=== PATIENT | female | born 1955 | race Caucasian/White ===

== ENCOUNTER 2023-10-28 15:33 | Emergency (ER) | payer MEDICARE ==
[2023-10-28 16:02] VITALS: TEMP 97.8
--- NOTE | 2023-10-28 16:37 | ED ---
Recheck HPI - General Chief Complaint: Recheck/Abnormal Lab/Rx Stated Complaint: Abnormal Labs Time Seen by Provider: 10/28/23 16:10 Source: patient, RN notes reviewed Mode of arrival: ambulatory Limitations: no limitations - History of Present Illness Initial Comments: This is a 68-year-old female who presents to the emergency department for abnormal blood work. States that she's had a week of excessive thirst and urination, as well as a reduced appetite for a couple of days. She saw her primary care provider, who said that she did not have thrush or a UTI, however they checked her blood sugar and said that her blood sugar was 565 and her A1c was 11.9. Reports a history of high blood pressure and high cholesterol. States that she had blood work done a couple of months ago and was told that she was a borderline diabetic, but is unsure what her blood sugar was at that time. MD Complaint: abnormal lab - Related Data Home Medications Medication Instructions Recorded Confirmed Cholecalciferol (Vitamin D3) 75 mcg PO DAILY 10/28/23 10/28/23 [Vitamin D3 (3000 Iu)] Losartan Potassium [Cozaar] 100 mg PO DAILY 10/28/23 10/28/23 Metoprolol Tartrate [Lopressor] 25 mg PO DAILY 10/28/23 10/28/23 Rosuvastatin [Crestor] 20 mg PO DAILY 10/28/23 10/28/23 amLODIPine [Norvasc] 5 mg PO DAILY 10/28/23 10/28/23 hydroCHLOROthiazide [Hydrodiuril] 25 mg PO DAILY 10/28/23 10/28/23 Previous Rx's Medication Instructions Recorded metFORMIN HCL 500 mg PO BID #60 tablet 10/28/23 Allergies Allergy/AdvReac Type Severity Reaction Status Date / Time No Known Allergies Allergy Verified 10/28/23 18:26 Review of Systems ROS Statement: Those systems with pertinent positive or pertinent negative responses have been documented in the HPI. ROS Other: All systems not noted in ROS Statement are negative. Past Medical History Past Medical History: Hypertension Additional Past Medical History / Comment(s): high cholestrol, heart dx History of Any Multi-Drug Resistant Organisms: None Reported Past Surgical History: No Surgical Hx Reported Past Psychological History: No Psychological Hx Reported Smoking Status: Never smoker Past Alcohol Use History: Rare Past Drug Use History: None Reported General Exam Limitations: no limitations General appearance: alert, in no apparent distress Head exam: Present: atraumatic, normocephalic, normal inspection Respiratory exam: Present: normal lung sounds bilaterally. Absent: respiratory distress, wheezes, rales, rhonchi, stridor Cardiovascular Exam: Present: regular rate, normal rhythm, normal heart sounds. Absent: systolic murmur, diastolic murmur, rubs, gallop, clicks Neurological exam: Present: alert, oriented X3, CN II-XII intact Psychiatric exam: Present: normal affect, normal mood Skin exam: Present: warm, dry, intact, normal color. Absent: rash Course Vital Signs 10/28/23 10/28/23 10/28/23 15:51 16:43 18:14 Temperature 97.8 F Pulse Rate 92 90 77 Respiratory 17 18 18 Rate Blood Pressure 139/83 128/80 121/79 O2 Sat by Pulse 95 96 94 L Oximetry 10/28/23 20:39 Temperature Pulse Rate 84 Respiratory 18 Rate Blood Pressure 118/69 O2 Sat by Pulse 97 Oximetry Medical Decision Making - Medical Decision Making This is a 68-year-old female who presents to the emergency department for elevated blood sugar. Was pt. sent in by a medical professional or institution? @ -No Did you speak to anyone other than the patient for history? @ -No Did you review nursing and triage notes? @ -Yes, and I agree, it is accurate with regards to the patient's symptoms. Were old charts reviewed? @ -No Differential Diagnosis? @ -Differential Elevated Blood Sugar: Diabetes, DKA, HHS, dietary intake, medication, this is not meant to be an all- inclusive list. EKG interpreted by me (3pts min.)? @ -None X-rays interpreted by me (1pt min.)? @ -None CT interpreted by me (1pt min.)? @ -None U/S interpreted by me (1pt. min.)? @ -None What testing was considered but not performed? (CT, X-rays, U/S, labs)? Why? @ -None What meds were considered but not given? Why? @ -None Did you discuss the management of the patient with other professionals? @ -No Did you reconcile home meds? @ -No Was smoking cessation discussed for >3mins.? @ -No Was critical care preformed (if so, how long)? @ -No Were there social determinants of health that impacted care today? How? (Homelessness, low income, unemployed, alcoholism, drug addiction, transp ortation, low edu. Level, literacy, decrease access to med. care, residential, rehab)? @ -No Was there de-escalation of care discussed even if they declined? (Discuss DNR or withdrawal of care, Hospice)? @ -No What co-morbidities impacted this encounter? (DM, HTN, Smoking, COPD, CAD, Cancer, CVA, Hep., AIDS, mental health diagnosis, sleep apnea, morbid obesity)? @ -HTN, HLD Was patient admitted / discharged? @ -Discharged. Lab work obtained demonstrating hyperglycemia with a glucose of 514. Anion gap is 18 and she is acetone positive, however bicarb is WNL at 25 and there is no sign of acidosis, pH is 7.44. Lab work did demonstrate signs of dehydration and the patient was given 2L of IV fluids and 8 units of regular insulin. Her sugar was rechecked afterwards and found to be 342. She was given another 5 units of regular insulin and her sugar came down to 269. At that time the patient was discharged home. She was given a prescription to start metformin 500 mg twice daily. She is otherwise advised follow-up with her primary care provider for reevaluation. Undiagnosed new problem with uncertain prognosis? @ -None Drug Therapy requiring intensive monitoring for toxicity (Heparin, Nitro, Insulin, Cardizem)? @ -None Were any procedures done? @ -None Diagnosis/symptom? @ -New onset diabetes mellitus Acute, or Chronic, or Acute on Chronic? @ -Acute Uncomplicated (without systemic symptoms) or Complicated (systemic symptoms)? @ -Complicated Side effects of treatment? @ -None Exacerbation, Progression, or Severe Exacerbation] @ -Not applicable Poses a threat to life or bodily function? @ -This will depend on how this progresses Return precautions reviewed in depth, the patient is instructed to return to the emergency department with any new, worsening, or concerning symptoms. Patient ve rbalized understanding. This case was discussed in detail with the attending ED physician, Dr. Johnson. Presentation, findings, and treatment plan discussed in detail as well. - Lab Data Result diagrams: 10/28/23 16:33 10/28/23 16:33 Lab Results 10/28/23 10/28/23 10/28/23 Range/Units 16:33 16:33 16:33 WBC 8.5 (3.8-10.6) k/uL RBC 4.89 (3.80-5.40) m/uL Hgb 14.9 (11.4-16.0) gm/dL Hct 44.1 (34.0-46.0) % MCV 90.3 (80.0-100.0) fL MCH 30.5 (25.0-35.0) pg MCHC 33.8 (31.0-37.0) g/dL RDW 12.3 (11.5-15.5) % Plt Count 256 (150-450) k/uL MPV 8.3 Neutrophils % 76 % Lymphocytes % 16 % Monocytes % 5 % Eosinophils % 1 % Basophils % 1 % Neutrophils # 6.5 (1.3-7.7) k/uL Lymphocytes # 1.4 (1.0-4.8) k/uL Monocytes # 0.4 (0-1.0) k/uL Eosinophils # 0.0 (0-0.7) k/uL Basophils # 0.1 (0-0.2) k/uL VBG pH (7.31-7.41) VBG pCO2 (37-51) mmHg VBG HCO3 (24-28) mmol/L Sodium 134 L (137-145) mmol/L Potassium 4.1 (3.5-5.1) mmol/L Chloride 91 L (98-107) mmol/L Carbon Dioxide 25 (22-30) mmol/L Anion Gap 18 mmol/L BUN 23 H (7-17) mg/dL Creatinine 0.80 (0.52-1.04) mg/dL Est GFR (CKD-EPI)AfAm 88 (>60 ml/min/1.73 sqM) Est GFR (CKD-EPI)NonAf 76 (>60 ml/min/1.73 sqM) Glucose 514 H* (74-99) mg/dL POC Glucose (mg/dL) (70-110) mg/dL POC Glu Cash Management Specialist ID Calcium 10.3 H (8.4-10.2) mg/dL Phosphorus 4.7 H (2.5-4.5) mg/dL Magnesium 2.2 (1.6-2.3) mg/dL Total Bilirubin 0.9 (0.2-1.3) mg/dL AST 46 H (14-36) U/L ALT 68 H (4-34) U/L Alkaline Phosphatase 141 H (38-126) U/L Total Protein 8.7 H (6.3-8.2) g/dL Albumin 5.3 H (3.5-5.0) g/dL Urine Color Colorless Urine Appearance Clear (Clear) Urine pH 5.5 (5.0-8.0) Ur Specific [place] 1.036 H (1.001-1.035) Urine Protein Negative (Negative) Urine Glucose (UA) 4+ H (Negative) Urine Ketones 1+ H (Negative) Urine Blood Trace H (Negative) Urine Nitrite Negative (Negative) Urine Bilirubin Negative (Negative) Urine Urobilinogen <2.0 (<2.0) mg/dL Ur Leukocyte Esterase Negative (Negative) Urine RBC 1 (0-5) /hpf Urine WBC 1 (0-5) /hpf Ur Squamous Epith Cells <1 (0-4) /hpf Acetone, Qual Positive (Negative) 10/28/23 10/28/23 10/28/23 Range/Units 17:21 19:23 20:17 WBC (3.8-10.6) k/uL RBC (3.80-5.40) m/uL Hgb (11.4-16.0) gm/dL Hct (34.0-46.0) % MCV (80.0-100.0) fL MCH (25.0-35.0) pg MCHC (31.0-37.0) g/dL RDW (11.5-15.5) % Plt Count (150-450) k/uL MPV Neutrophils % % Lymphocytes % % Monocytes % % Eosinophils % % Basophils % % Neutrophils # (1.3-7.7) k/uL Lymphocytes # (1.0-4.8) k/uL Monocytes # (0-1.0) k/uL Eosinophils # (0-0.7) k/uL Basophils # (0-0.2) k/uL VBG pH 7.44 H (7.31-7.41) VBG pCO2 41 (37-51) mmHg VBG HCO3 28 (24-28) mmol/L Sodium (137-145) mmol/L Potassium (3.5-5.1) mmol/L Chloride (98-107) mmol/L Carbon Dioxide (22-30) mmol/L Anion Gap mmol/L BUN (7-17) mg/dL Creatinine (0.52-1.04) mg/dL Est GFR (CKD-EPI)AfAm (>60 ml/min/1.73 sqM) Est GFR (CKD-EPI)NonAf (>60 ml/min/1.73 sqM) Glucose (74-99) mg/dL POC Glucose (mg/dL) 342 H 269 H (70-110) mg/dL POC Glu Cash Management Specialist Bruna Duval Brooke Calcium (8.4-10.2) mg/dL Phosphorus (2.5-4.5) mg/dL Magnesium (1.6-2.3) mg/dL Total Bilirubin (0.2-1.3) mg/dL AST (14-36) U/L ALT (4-34) U/L Alkaline Phosphatase (38-126) U/L Total Protein (6.3-8.2) g/dL Albumin (3.5-5.0) g/dL Urine Color Urine Appearance (Clear) Urine pH (5.0-8.0) Ur Specific [place] (1.001-1.035) Urine Protein (Negative) Urine Glucose (UA) (Negative) Urine Ketones (Negative) Urine Blood (Negative) Urine Nitrite (Negative) Urine Bilirubin (Negative) Urine Urobilinogen (<2.0) mg/dL Ur Leukocyte Esterase (Negative) Urine RBC (0-5) /hpf Urine WBC (0-5) /hpf Ur Squamous Epith Cells (0-4) /hpf Acetone, Qual (Negative) Disposition Clinical Impression: Diabetes mellitus, new onset Disposition: HOME SELF-CARE Instructions (If sedation given, give patient instructions): Type 2 Diabetes in Adults: New Diagnosis (DC), Type 2 Diabetes Management for Adults (ED) Additional Instructions: Return to the emergency department with any new, worsening, or concerning symptoms. Start taking the metformin twice daily. Follow up with your primary care provider in 1-2 days. Prescriptions: metFORMIN HCL 500 mg PO BID #60 tablet Is patient prescribed a controlled substance at d/c from ED?: No Referrals: Nonstaff,Physician [Primary Care Provider] - 1-2 days
[2023-10-28 16:49] VITALS: RESP 18
[2023-10-28 17:00] LABS: Basophils # (A) 0.1 k/uL (0-0.2); Basophils % (A) 1 %; Eosinophils % (A) 1 %; HCT 44.1 % (34.0-46.0); HGB 14.9 gm/dL (11.4-16.0); Lymphocytes # (A) 1.4 k/uL (1.0-4.8); Lymphocytes % (A) 16 %; MCH 30.5 pg (25.0-35.0); MCHC 33.8 g/dL (31.0-37.0); MCV 90.3 fL (80.0-100.0); Mean Platelet Volume 8.3; Monocytes # (A) 0.4 k/uL (0-1.0); Monocytes % (A) 5 %; Neutrophils # (A) 6.5 k/uL (1.3-7.7); Neutrophils % (A) 76 %; Platelet Count 256 k/uL (150-450); RBC 4.89 m/uL (3.80-5.40); RDW 12.3 % (11.5-15.5); WBC 8.5 k/uL (3.8-10.6)
[2023-10-28 17:02] LABS: Appearance,Urine Clear (Clear); Bilirubin,Urine Negative (Negative); Blood,Urine Trace (Negative); Color,Urine Colorless; Glucose,Urine (UA) 4+ (Negative); Ketones,Urine 1+ (Negative); Leukocyte Esterase,Urine Negative (Negative); Nitrite,Urine Negative (Negative); PH, Urine 5.5 (5.0-8.0); Protein,Urine Negative (Negative); RBC,Urine 1 /hpf (0-5); Specific Gravity,Urine 1.036 (1.001-1.035); Squamous Epithelial Cell,Urine <1 /hpf (0-4); Urobilinogen,Urine <2.0 mg/dL (<2.0); WBC,Urine 1 /hpf (0-5)
[2023-10-28 17:16] LABS: ALT 68 U/L (4-34); AST 46 U/L (14-36); African American GFR (CKD) 88 (>60 ml/min/1.73 sqM); Albumin 5.3 g/dL (3.5-5.0); Alkaline Phosphatase 141 U/L (38-126); Anion Gap 18 mmol/L; Blood Urea Nitrogen 23 mg/dL (7-17); Calcium 10.3 mg/dL (8.4-10.2); Carbon Dioxide 25 mmol/L (22-30); Chloride 91 mmol/L (98-107); Magnesium 2.2 mg/dL (1.6-2.3); Non-African American GFR(CKD) 76 (>60 ml/min/1.73 sqM); Phosphorus 4.7 mg/dL (2.5-4.5); Potassium 4.1 mmol/L (3.5-5.1); Sodium 134 mmol/L (137-145); Total Bilirubin 0.9 mg/dL (0.2-1.3); Total Protein 8.7 g/dL (6.3-8.2)
[2023-10-28 17:19] LABS: Glucose 514 mg/dL (74-99)
[2023-10-28] MEDS ORDERED: SODIUM CHLORIDE 0.9% 2,000 ML IV STA (17:25)
[2023-10-28] MEDS ORDERED: INSULIN REGULAR 100 UNIT/ML VIAL (IV) IV ONE ×3 (17:25→19:28)
[2023-10-28 17:50] LABS: VBG PH 7.44 (7.31-7.41)
[2023-10-28 19:25] LABS: Glucose,Whole Blood 342 mg/dL (70-110)
[2023-10-28 20:21] LABS: Glucose,Whole Blood 269 mg/dL (70-110)
[2023-10-28 20:56] VITALS: BP 118/69; PULSE 84
== END 2023-10-28 20:40 | disposition home or self-care (01) ==
LOC: EC 15:33
DX: E11.9 Type 2 diabetes mellitus without complications (principal); I10 Essential (primary) hypertension; E78.00 Pure hypercholesterolemia, unspecified; Z79.899 Other long term (current) drug therapy
CPT/HCPCS: 36415; 80053; 81001; 82009; 82803; 83735; 84100; 85025; 96360; 96361; 99283

== ENCOUNTER → 2024-10-23 | Outpatient (CLI) | payer MEDICARE ==
[2024-10-23 15:52] VITALS: BP 158/85; PULSE 82; RESP 16; TEMP 98.2
--- NOTE | 2024-10-23 16:34 | P.SLEEP ---
History of Present Illness H&P Date: 10/23/24 This is a 69-year-old female patient, presenting to the sleep center due to concerns of obstructive sleep apnea. The patient is currently . She is living alone in the city of [place]. Prior to that, she used to live in [place]. She is having snoring. She has excessive fatigue and tiredness during the day. Her current [place] score is 6. She has a recent diagnosis of diabetes mellitus type 2 and the patient was started on Ozempic and the patient has lost some weight since the treatment and her current weight is down to 168 from 183. No sleep paralysis. No hallucinations. No cataplexy. No nocturia. No sleepwalking or sleep talking. No restlessness in lower extremities. Denies having any grinding. No history of any motor vehicle accidents because of feeling drowsy or sleepy. She goes to bed 11 PM wakes up 8 AM in the morning. Takes a few minutes to fall asleep. She drinks 2 cups of coffee in the morning. No alcohol use. No smoking. No substance abuse. Occasionally, she takes naps during the day and she tries to find those naps. She wakes a few times in the middle of the night to urinate. Review of Systems Constitutional: Reports daytime sleepiness, Reports fatigue, Reports weight loss Eyes: denies as per HPI, denies blurred vision, denies bulging eye, denies decreased vision, denies diplopia, denies discharge, denies dry eye, denies irritation, denies itching, denies pain, denies photophobia, denies loss of peripheral vision, denies loss of vision, denies tunnel vision/blind spots Ears: deny: decreased hearing, ear discharge, earache, tinnitus Ears, nose, mouth and throat: Reports as per HPI Breasts: absent: as per HPI, change in shape, gynecomastia, masses, nipple discharge, pain, skin changes, swelling Cardiovascular: Reports as per HPI Respiratory: Reports snoring Gastrointestinal: Reports as per HPI Genitourinary: Reports as per HPI Menstruation: Reports as per HPI Musculoskeletal: Reports as per HPI Musculoskeletal: absent: ankle pain, ankle stiffness, ankle swelling, as per HPI, elbow pain, elbow stiffness, elbow swelling, foot pain, foot stiffness, foot swelling, hand pain, hand stiffness, hand swelling, hip pain, hip stiffness, hip swelling, knee pain, knee stiffness, knee swelling, shoulder pain, shoulder stiffness, shoulder swelling, wrist pain, wrist stiffness, wrist swelling Integumentary: Reports as per HPI Neurological: Reports as per HPI Psychiatric: Reports as per HPI Endocrine: Reports as per HPI, Reports fatigue Hematologic/Lymphatic: Reports as per HPI Allergic/Immunologic: Reports as per HPI Past Medical History Past Medical History: Asthma, Diabetes Mellitus, Hyperlipidemia, Hypertension Additional Past Medical History / Comment(s): high cholestrol, heart dx , psoriatic arthritis, bonchitis, migraines, anemia as a teenager. History of Any Multi-Drug Resistant Organisms: None Reported Past Surgical History: No Surgical Hx Reported Additional Past Surgical History / Comment(s): cervical conization, outpatient ovarian cyst Past Psychological History: PTSD Smoking Status: Never smoker Past Alcohol Use History: Rare Past Drug Use History: None Reported - Past Family History Father Family Medical History: Hyperlipidemia, Hypertension Additional Family Medical History / Comment(s): All family have HTN (Lipid A protein), PAD (BROTHER ALSO, WELL HTN AND HIGH CHOLESTEROL - BROTHER FROM BLOOD CLOT IN LEG) 9both dad and brother ) Mother Family Medical History: Hyperlipidemia, Hypertension Additional Family Medical History / Comment(s): TIA'S, Medications and Allergies Home Medications Medication Instructions Recorded Confirmed Type Cholecalciferol (Vitamin D3) 75 mcg PO DAILY 10/28/23 10/28/23 History [Vitamin D3 (3000 Iu)] Losartan Potassium [Cozaar] 100 mg PO DAILY 10/28/23 10/28/23 History Metoprolol Tartrate [Lopressor] 25 mg PO DAILY 10/28/23 10/28/23 History Rosuvastatin [Crestor] 20 mg PO DAILY 10/28/23 10/28/23 History amLODIPine [Norvasc] 5 mg PO DAILY 10/28/23 10/28/23 History hydroCHLOROthiazide [Hydrodiuril] 25 mg PO DAILY 10/28/23 10/28/23 History metFORMIN HCL 500 mg PO BID #60 tablet 10/28/23 Rx Allergies Allergy/AdvReac Type Severity Reaction Status Date / Time No Known Allergies Allergy Verified 10/28/23 18:26 Physical Exam Vitals: Vital Signs Temp Pulse Resp BP Pulse Ox 10/23/24 15:49 98.2 F 82 16 158/85 96 Intake and Output 10/23/24 10/23/24 10/23/24 06:59 14:59 22:59 Other: Weight 82.781 kg The patient appeared well nourished and normally developed. Vital signs as documented. Head exam is unremarkable. No scleral icterus or corneal arcus noted. Neck is without jugular venous distension, thyromegaly, or carotid bruits. Carotid upstrokes are brisk bilaterally. Mallampati class IV with a slight overbite. Lungs are clear to auscultation and percussion. Cardiac exam reveals the PMI to be normally sized and situated. Rhythm is regular. First and second heart sounds normal. No murmurs, rubs or gallops. Abdominal exam reveals normal bowel sounds, no masses, no organomegaly and no aortic enlargement. Extremities are nonedematous and both femoral and pedal pulses are normal. Examination of the skin revealed no evidence of significant rashes, suspicious appearing nevi or other concerning lesions. Neurologically, the patient is awake and alert and the patient does not have any focal neurological deficit. Cranial nerves are essentially intact. Assessment and Plan Plan: Chronic fatigue/sleepiness with an [place] score of 6 Snoring Obesity with recent weight loss. Current body mass index is down to 31.2 Mallampati class IV Diabetes mellitus type 2, currently on Ozempic which is also facilitated some weight loss Hypertension Hyperlipidemia Plan Low clinical suspicion for sleep apnea Encouraged further weight loss Maintain good sleep hygiene measures Home sleep study to evaluate the presence and severity of sleep apnea and decide accordingly if treatment is needed. Sleep Note - Sleep Data ESS Total: 6 - Sleep Note Sleep Note: Temperature: 98.2 F Pulse Rate: 82 Respiratory Rate: 16 Blood Pressure: 158/85 SpO2: 96 Height: 5 ft 4 in Weight: 82.781 kg BMI: Neck Circumference: 15.2
== END ==
LOC: 3 N SLEEP 14:24
PROVIDERS: ATTEND Internal Medicine Critical Care Medicine
DX: R06.83 Snoring (principal); R53.83 Other fatigue; E66.9 Obesity, unspecified; Z68.31 Body mass index [BMI] 31.0-31.9, adult; I10 Essential (primary) hypertension; E11.9 Type 2 diabetes mellitus without complications; E78.5 Hyperlipidemia, unspecified; Z79.85 Long-term (current) use of injectable non-insulin antidiabetic drugs; Z79.84 Long term (current) use of oral hypoglycemic drugs; Z79.899 Other long term (current) drug therapy
CPT/HCPCS: 99211

== ENCOUNTER → 2024-11-16 | Outpatient (CLI) | payer MEDICARE | LOC: 3 N SLEEP 10:39 | PROVIDERS: ATTEND Internal Medicine Critical Care Medicine | DX: G47.33 Obstructive sleep apnea (adult) (pediatric) (principal) ==

== ENCOUNTER → 2024-12-17 | Outpatient (CLI) | payer MEDICARE ==
--- NOTE | 2024-12-18 13:35 | P.PCN ---
Date of Procedure: 12/17/24 Operative Findings: Home sleep study testing Date of service is 12/17/2024 History This is a 69-year-old female patient, presenting to the sleep center due to concerns of obstructive sleep apnea. The patient is currently . She is living alone in the city of [place]. Prior to that, she used to live in [place]. She is having snoring. She has excessive fatigue and tiredness during the day. Her current Vass score is 6. She has a recent diagnosis of diabetes mellitus type 2 and the patient was started on Ozempic and the patient has lost some weight since the treatment and her current weight is down to 168 from 183. No sleep paralysis. No hallucinations. No cataplexy. No nocturia. No sleepwalking or sleep talking. No restlessness in lower extremities. Denies having any grinding. No history of any motor vehicle accidents because of feeling drowsy or sleepy. She goes to bed 11 PM wakes up 8 AM in the morning. Takes a few minutes to fall asleep. She drinks 2 cups of coffee in the morning. No alcohol use. No smoking. No substance abuse. Occasionally, she takes naps during the day and she tries to find those naps. She wakes a few times in the middle of the night to urinate. Based on that, the patient is coming in to undergo a home sleep study Physical findings Body mass index is 31.2 Technical description The [employer] ApneaLink system was used to complete his home sleep study. This is a type III home sleep study evaluation. The total recording duration was 8 hours and 54 minutes. The study started at 10:34 PM and ended at 7:28 AM. There was a total of 8 hours and 40 minutes of flow and oxygen saturation monitoring Results The respiratory analysis showed a total of 254 obstructive apneas and 215 obstructive hypopneas. The resulting AHI was 54.1. This is consistent with severe obstructive sleep apnea Oxygenation analysis The baseline pulse ox while the patient awake on room air oxygen was 95%. Average pulse ox was 91% during sleep and the minimum pulse ox was 83%. The patient spent approximately 40 minutes of the sleep time below pulse ox of 89% Cardiac summary Average heart rate was 73 minimum heart of 61 and the maximum heart rate of 101 Assessment Severe symptomatic GILBERTO with an AHI of 54.1 Nocturnal oxygen desaturation with a minimum pulse ox of 83% Chronic fatigue/sleepiness with an Vass score of 6 Snoring Obesity with recent weight loss. Current body mass index is down to 31.2 Mallampati class IV Diabetes mellitus type 2, currently on Ozempic which is also facilitated some weight loss Hypertension Hyperlipidemia Plan Severe symptomatic obstructive sleep apnea. Encouraged further weight loss Maintain good sleep hygiene measures Home sleep study is consistent with severe GILBERTO the patient will be asked to come in to undergo a CPAP titration for future treatment with CPAP therapy.
== END ==
LOC: 3 N SLEEP 12:48
PROVIDERS: ATTEND Internal Medicine Critical Care Medicine
DX: E11.9 Type 2 diabetes mellitus without complications (principal); G47.33 Obstructive sleep apnea (adult) (pediatric); R53.82 Chronic fatigue, unspecified; E78.5 Hyperlipidemia, unspecified; I10 Essential (primary) hypertension; R06.83 Snoring; E66.9 Obesity, unspecified; Z68.31 Body mass index [BMI] 31.0-31.9, adult